=== PATIENT | female | born 1975 | race Caucasian/White ===

== ENCOUNTER 2016-10-25 04:12 | Emergency (ER) | payer OTHER ==
[2016-10-25 04:20] VITALS: BP 129/68; BMI 19.3
[2016-10-25] MEDS ORDERED: AMOXIL CAP 500 MG PO ONE ×2 (04:54→05:07)
[2016-10-25] MEDS ORDERED: TORADOL 60 MG VIAL IM ONE (04:54)
--- NOTE | 2016-10-25 04:55 | DR.GENAD ---
HPI - PCP Primary Care Physician: DORY - HPI Comment HPI Comment: SYMTOMS WORSE TODAY. - Complaint/Symptoms Chief Complaint Doctors Comments: PAIN RT EAR, HEADACHE, COUGH, COLD CONGESTION WITH FEVER AND BODYACHES TIMES ONE DAY. Chief Complaint:: RT EAR PAIN HEADACHE AND BODY ACHES - Nurses notes reviewed Nurses Notes Review: Yes - Source History Provided: Patient - Mode of Arrival Mode of Arrival: Ambulatory - Timing Onset of Chief Complaint: 10/24/16 Came on: Suddenly - Duration Duration: Constant Duration: Days - Severity Severity: Moderate PMH - PMH Past Medical History: No Past Surgical History: Yes Surgical History: - Family History History of Family Medical Conditions: No - Social History Type of Tobacco Use: Cigarettes Does any household member use tobacco: No Alcohol Use: None Do you use any recreational Drugs:: No Lives With: Family Lives Where: Home - infectious screening In the last 2 months have you had wt loss of >10#?: NO Have you had fever, night sweats or hemotysis?: No Have you traveled outside the country in the last 6 months?: No Isolation: Standard ROS - Review of Systems Constitutional: No Symptoms Reported Eyes: No Symptoms Reported. negative: Eye Pain, Discharge ENTM: Ear Pain, Nose Discharge, Nose Congestion, Throat Pain Respiratoy: Productive Cough. negative: Short of Breath, Wheezing, Hemoptysis Cardiovascular: Chest Pain Gastrointestinal/Abdominal: Nausea. negative: Abdominal Pain, Constipation, Diarrhea, Vomiting Genitourinary: No Symptoms Reported Neurological: Headache, Weakness, Dizziness Musculoskeletal: Joint Pain, Muscle Pain Integumentary: No Symptoms Reported Hematologic/Lymphatic: No Symptoms Reported Endocrine: No Symptoms Reported All Other Systems: Reviewed and Negative PE - Vital Signs Vitals: Temperature 98.7 F Pulse Rate 91 Respiratory Rate 18 Blood Pressure 129/68 O2 Sat by Pulse Oximetry 98 - General Limitations: No Limitations General Appearance: Alert - Head Head Exam: Normal Inspection - Eyes Eye exam: Normal Appearance - ENT ENT Exam: Normal External Ear Exam External Ear Exam: Normal External Inspection TM/Canal Exam: Bilateral Bulging Nose Exam: Normal Nose Exam Mouth Exam: Normal Inspection Throat Exam: Tonsillar Erythema. negative: Tonsillomegaly, Tonsillar Exudate - Neck Neck Exam: Trachea Midline. negative: Tenderness, Meningismus, Lymphadenopathy - Chest Chest Inspection: Symmetric Chest Wall Rise - Respiratory Respiratory Exam: Normal Lung Sounds Bilat Respiratory Exam: Bilateral Clear to Auscultation - Cardiovascular Cardiovascular Exam: Regular Rate, Normal Rhythm, Normal Heart Sounds - Abdominal Exam Abdominal Exam: Normal Bowel Sounds, Soft. negative: Tenderness - Extremities Extremities Exam: Normal Inspection - Back Back Exam: Normal Inspection - Neurologic Neurological Exam: Alert, Oriented X3, CN II-XII Intact - Psychiatric Psychiatric Exam: Anxious - Skin Skin Exam: Erythema MDM - Differential Diagnosis Differential Diagnosis: ACUTE SINUSITIS, ACUTR BRONCHITIS, URI, PNEUMONIA Course - Treatment Treatment: SEE ORDERS. IM MED FOR PAIN AND PO ANTIBIOTIC IN ED. - Reevaluation 1st: Improved (PAIN IMPROVING.) - Education/Counseling Education/Counseling: Patient, Education Educated On: Diagnosis, Needs for Follow Up - Diagnosis Discharge Problem: Acute sinusitis Qualifiers: Sinusitis location: unspecified location Recurrence: not specified as recurrent Qualified Code(s): J01.90 - Acute sinusitis, unspecified Acute bronchitis Qualifiers: Bronchitis organism: other organism Qualified Code(s): J20.8 - Acute bronchitis due to other specified organisms - Discharge Plan Condition: Stable Prescriptions: Amoxicillin [Amoxil 875 mg] 875 mg PO BID #20 tab Ibuprofen [MOTRIN TAB 600 MG *] 600 mg PO TID PRN #20 tab PRN Reason: Pain/Inflammation Promethazine W/Codeine [PHENERGAN W/CODEINE 6.25mg/10mg (5mL) *] 5 ml PO Q6H PRN #120 ml PRN Reason: Cough - Follow ups/Referrals Follow ups/Referrals: NFD,None [Primary Care Provider] - 2 days LEONOR GUTIERREZ [STAFF PHYSICIAN] - 2 days - Instructions Instructions: Sinus Headache, [id number], Sinusitis, Adult, Acute Bronchitis , [id number]
[2016-10-25] MEDS ORDERED: TORADOL 60 MG VIAL ONE (05:07)
== END 2016-10-25 06:03 | disposition home or self-care (01) ==
LOC: ER 04:20
DX: J01.80 Other acute sinusitis (principal); J20.8 Acute bronchitis due to other specified organisms
CPT/HCPCS: 87502; 87503; 96372; 99282; J1885

== ENCOUNTER 2016-11-02 08:03 | Emergency (ER) | payer OTHER ==
[2016-11-02 08:14] VITALS: BP 130/84; BMI 19.3
[2016-11-02] MEDS ORDERED: ZOFRAN TAB 4 MG PO ONE (09:05)
[2016-11-02] MEDS ORDERED: ZOFRAN TAB 4 MG ONE (09:09)
[2016-11-02 09:12] LABS: BASOPHILS % (AUTO) 0.5 % (0.2-1.0); EOSINOPHILS % (AUTO) 0.9 % (0.9-2.9); HEMATOCRIT 42.2 % (36.0-47.0); HEMOGLOBIN 14.4 g/dL (12.0-16.0); LYMPHOCYTES # (AUTO) 1.5 X10^3/uL (1.3-2.9); MEAN CORPUSCULAR HEMOGLOBIN 29.9 pg (27.0-34.0); MEAN CORPUSCULAR HGB CONC 34.2 g/dL (33.0-35.0); MEAN CORPUSCULAR VOLUME 87.2 fL (80.0-100.0); MEAN PLATELET VOLUME 8.5 fL (7.4-11.0); MONOCYTES # (AUTO) 0.4 x10^3/uL (0.3-0.8); MONOCYTES % (AUTO) 7.6 % (0.0-13.0); NEUTROPHILS # (AUTO) 3.1 x10^3/uL (2.2-4.8); PLATELET COUNT 259 X10^3/uL (150.0-450.0); RED BLOOD COUNT 4.84 X10^6/uL (3.5-5.4); RED CELL DISTRIBUTION WIDTH 12.5 % (11.6-16.5); WHITE BLOOD COUNT 5.1 X10^3/uL (3.6-10.0)
[2016-11-02 09:25] LABS: BILIRUBIN,URINE NEGATIVE (NEGATIVE); BLOOD/HEMOGLOBIN,URINE NEGATIVE (NEGATIVE); GLUCOSE, URINE NEGATIVE (NEGATIVE); KETONES,URINE NEGATIVE (NEGATIVE); LEUKOCYTE ESTERASE ,URINE NEGATIVE (NEGATIVE); NITRITES,URINE NEGATIVE (NEGATIVE); PROTEIN,URINE NEGATIVE (NEGATIVE); UROBILINOGEN,URINE NORMAL (NORMAL)
[2016-11-02 09:29] LABS: ALANINE AMINOTRANSFERASE 13 Units/L (12-78); ALBUMIN 3.7 g/dL (3.4-5.0); ALKALINE PHOSPHATASE 65 Units/L (46-116); ASPARTATE AMINO TRANSFERASE 10 Units/L (15-37); BLOOD UREA NITROGEN 5 mg/dL (7-18); CALCIUM 8.7 mg/dL (8.5-10.1); CARBON DIOXIDE 30.1 mmol/L (21-32); CHLORIDE 104 mmol/L (98-107); CREATININE 0.82 mg/dL (0.55-1.02); GLUCOSE 94 mg/dL (65-99); SODIUM 143 mmol/L (136-145); TOTAL PROTEIN 7.3 g/dL (6.4-8.2); eGFR BLACK RACES > 60 (>60); eGFR NON BLACK RACES > 60 (>60)
[2016-11-02 09:46] LABS: SERUM PREGNANCY TEST, QUAL NEGATIVE <10 mIU/mL
[2016-11-02 09:47] LABS: AMORPHOUS SEDIMENT,UR TRACE /HPF (NEGATIVE); APPEARANCE,URINE CLEAR (CLEAR); BACTERIA,URINE TRACE /HPF (NEGATIVE); COLOR,URINE YELLOW (YELLOW); RBC,URINE NONE SEEN /HPF (NEGATIVE); SQUAMOUS EPITHELIAL CELL,UR MANY /HPF (NEGATIVE)
[2016-11-02] MEDS ORDERED: POTASSIUM CHLORIDE LIQ 20 MEQ UDC PO ONE (09:51)
--- NOTE | 2016-11-02 09:52 | DR.GENAD ---
HPI - PCP Primary Care Physician: DORY - HPI Comment HPI Comment: PATIENT SAID SHE HAVE USE HYDROCORDONE ON AND OFF FOR 7 YEARS. BUY MED FROM [facility] STREET. PATIENT IS SIGHTLY NAUSEATED TODAY. DENIES SUICIDAL OR HOMICIDAL IDEATIONS. PATIENT DO NOT WISH TO GO TO AN INPATIENT INSTITUITION CURRENTLY. SHE IS SEEKING HELP TO GET OFF OPOIDS. - Complaint/Symptoms Chief Complaint Doctors Comments: PATIENT IS REQUESTING HELP TO GET OFF FROM ILLICIT USE OF HYDROCORDON. LAST USE MED 2 DAYS AGO. Chief Complaint:: PT STATES " I AM HERE TO GET OFF OF PAIN PILLS I HAVE NOT HAD ANY IN 2 DAYS AND ANY TIME I HAVE TRIED TO DETOX I GET SICK". Self Treatment fo Chief Complaint: PT DENIES .. ANY HX OF MENTAL HEALTH AND SHE STATES SHE IS NOT .. WANTING TO HURT HERSELF OR ANYONE ELSE. - Nurses notes reviewed Nurses Notes Review: Yes - Source History Provided: Patient - Mode of Arrival Mode of Arrival: Ambulatory - Timing Onset of Chief Complaint: 11/02/16 Came on: Gradually - Duration Duration: Intermittent Duration: Weeks (YEARS) - Severity Severity: Moderate PMH - PMH Past Medical History: No Past Surgical History: Yes Surgical History: Past Surgical History Comment: .. - Family History History of Family Medical Conditions: Yes Family Medical History: Diabetes Mellitus, Hypertension - Social History Does patient currently use any type of tobacco product: Yes Have you used tobacco products in the last 12 months: Yes Type of Tobacco Use: Cigarettes How many years tobacco product used: 25 Does any household member use tobacco: No Alcohol Use: None Do you use any recreational Drugs:: No Lives With: Family Lives Where: Home - infectious screening In the last 2 months have you had wt loss of >10#?: NO Have you had fever, night sweats or hemotysis?: No Have you traveled outside the country in the last 6 months?: No Isolation: Standard ROS - Review of Systems Constitutional: No Symptoms Reported Eyes: No Symptoms Reported. negative: Eye Pain, Discharge ENTM: No Symptoms Reported. negative: Ear Pain, Nose Discharge, Nose Congestion , Throat Pain Respiratoy: No Symptoms Reported. negative: Productive Cough, Non-Productive Cough, Short of Breath, Wheezing, Hemoptysis Cardiovascular: No Symptoms Reported Gastrointestinal/Abdominal: No Symptoms Reported, Nausea. negative: Vomiting Genitourinary: No Symptoms Reported. negative: Dysuria, Frequency, Hematuria Neurological: No Symptoms Reported. negative: Headache, Weakness, Dizziness Musculoskeletal: Muscle Pain Integumentary: No Symptoms Reported Hematologic/Lymphatic: No Symptoms Reported Endocrine: No Symptoms Reported Psychiatric: Other (NO HOMIOICIDAL IDEATION.). negative: Hallucinations, Suicidal All Other Systems: Reviewed and Negative PE - Vital Signs Vitals: Temperature 98.1 F Pulse Rate 92 Respiratory Rate 22 Blood Pressure 130/84 O2 Sat by Pulse Oximetry 100 - General Limitations: No Limitations General Appearance: Alert - Head Head Exam: Normal Inspection - Eyes Eye exam: Normal Appearance - ENT ENT Exam: Normal External Ear Exam External Ear Exam: Normal External Inspection TM/Canal Exam: Bilateral Normal Nose Exam: Normal Nose Exam Mouth Exam: Normal Inspection Throat Exam: Normal Inspection - Neck Neck Exam: Trachea Midline - Chest Chest Inspection: Symmetric Chest Wall Rise - Respiratory Respiratory Exam: Normal Lung Sounds Bilat Respiratory Exam: Bilateral Clear to Auscultation - Cardiovascular Cardiovascular Exam: Regular Rate, Normal Rhythm, Normal Heart Sounds - Abdominal Exam Abdominal Exam: Normal Bowel Sounds, Soft. negative: Tenderness - Extremities Extremities Exam: Normal Inspection - Back Back Exam: Normal Inspection - Neurologic Neurological Exam: Alert, Oriented X3, CN II-XII Intact, Normal Gait, Reflexes Normal. negative: Motor Sensory Deficit - Psychiatric Psychiatric Exam: Anxious - Skin Skin Exam: Normal Color MDM - Differential Diagnosis Differential Diagnosis: SUBSTANCE USE DISORDER, DETOX REQUEST/FOR OUT PATIENT. Course - Treatment Treatment: SEE ORDERS. PATIENT DO NOT WISH INPATIENT CARE CURRENTLY. OUT PATIENT APPOITMENT WITH [facility]. - Education/Counseling Education/Counseling: Patient, Education Educated On: Treatment, Diagnosis, Needs for Follow Up ROR - Labs Reviewed Laboratory Results Reviewed?: Yes Result Diagrams: 11/02/16 09:00 11/02/16 09:00 Laboratory: WBC 5.1 X10^3/uL (3.6-10.0) 11/02/16 09:00 RBC 4.84 X10^6/uL (3.5-5.4) 11/02/16 09:00 Hgb 14.4 g/dL (12.0-16.0) 11/02/16 09:00 Hct 42.2 % (36.0-47.0) 11/02/16 09:00 MCV 87.2 fL (80.0-100.0) 11/02/16 09:00 MCH 29.9 pg (27.0-34.0) 11/02/16 09:00 MCHC 34.2 g/dL (33.0-35.0) 11/02/16 09:00 RDW 12.5 % (11.6-16.5) 11/02/16 09:00 Plt Count 259 X10^3/uL (150.0-450.0) 11/02/16 09:00 MPV 8.5 fL (7.4-11.0) 11/02/16 09:00 Neut % 61.0 % (42.0-75.0) 11/02/16 09:00 Lymph % 30.0 % (21.0-51.0) 11/02/16 09:00 Burke % 7.6 % (0.0-13.0) 11/02/16 09:00 Eos % 0.9 % (0.9-2.9) 11/02/16 09:00 Baso % 0.5 % (0.2-1.0) 11/02/16 09:00 Neut # 3.1 x10^3/uL (2.2-4.8) 11/02/16 09:00 Lymph # 1.5 X10^3/uL (1.3-2.9) 11/02/16 09:00 Burke # 0.4 x10^3/uL (0.3-0.8) 11/02/16 09:00 Eos # 0.0 x10^3/uL (0.0-0.2) 11/02/16 09:00 Baso # 0.0 X10^3/uL (0.0-0.1) 11/02/16 09:00 Absolute Nucleated RBC 0.0 /100WBC 11/02/16 09:00 Sodium 143 mmol/L (136-145) 11/02/16 09:00 Corrected Sodium TNP 11/02/16 09:00 Potassium 3.1 mmol/L (3.5-5.1) L 11/02/16 09:00 Chloride 104 mmol/L (98-107) 11/02/16 09:00 Carbon Dioxide 30.1 mmol/L (21-32) 11/02/16 09:00 BUN 5 mg/dL (7-18) L 11/02/16 09:00 Creatinine 0.82 mg/dL (0.55-1.02) 11/02/16 09:00 Est GFR (MDRD) Af Amer > 60 (>60) 11/02/16 09:00 Est GFR (MDRD) Non-Af > 60 (>60) 11/02/16 09:00 Glucose 94 mg/dL (65-99) 11/02/16 09:00 Calcium 8.7 mg/dL (8.5-10.1) 11/02/16 09:00 Corrected Calcium TNP 11/02/16 09:00 Total Bilirubin 0.30 mg/dL (0.2-1.0) 11/02/16 09:00 AST 10 Units/L (15-37) L 11/02/16 09:00 ALT 13 Units/L (12-78) 11/02/16 09:00 Alkaline Phosphatase 65 Units/L (46-116) 11/02/16 09:00 Total Protein 7.3 g/dL (6.4-8.2) 11/02/16 09:00 Albumin 3.7 g/dL (3.4-5.0) 11/02/16 09:00 Globulin 3.6 g/dL (2.5-4.5) 11/02/16 09:00 Albumin/Globulin Ratio 1.0 Ratio (1.1-2.1) L 11/02/16 09:00 HCG, Qual Negative <10 mIU/mL 11/02/16 09:00 Specimen Type Clean catch urine 11/02/16 08:46 Urine Color Yellow (YELLOW) 11/02/16 08:46 Urine Appearance Clear (CLEAR) 11/02/16 08:46 Urine pH 7.0 (5.0 - 8.0) 11/02/16 08:46 Ur Specific [place] 1.005 (1.000-1.030) 11/02/16 08:46 Urine Protein Negative (NEGATIVE) 11/02/16 08:46 Urine Glucose (UA) Negative (NEGATIVE) 11/02/16 08:46 Urine Ketones Negative (NEGATIVE) 11/02/16 08:46 Urine Occult Blood Negative (NEGATIVE) 11/02/16 08:46 Urine Nitrite Negative (NEGATIVE) 11/02/16 08:46 Urine Bilirubin Negative (NEGATIVE) 11/02/16 08:46 Urine Urobilinogen Normal (NORMAL) 11/02/16 08:46 Ur Leukocyte Esterase Negative (NEGATIVE) 11/02/16 08:46 Urine RBC None seen /HPF (NEGATIVE) 11/02/16 08:46 Urine WBC 0-1 /HPF (NEGATIVE) 11/02/16 08:46 Ur Squamous Epith Cells Many /HPF (NEGATIVE) 11/02/16 08:46 Amorphous Sediment Trace /HPF (NEGATIVE) 11/02/16 08:46 Urine Bacteria Trace /HPF (NEGATIVE) 11/02/16 08:46 Ur Culture Indicated? No/not indicated 11/02/16 08:46 Salicylates 5.0 mg/dL (2.8-20) 11/02/16 09:00 Urine Opiates Screen Negative (NEG=<300) 11/02/16 08:46 Urine Methadone Screen Negative (NEG=<300) 11/02/16 08:46 Acetaminophen 0.0 ug/mL (10-30) L 11/02/16 09:00 Ur Barbiturates Screen Negative (NEG=<200) 11/02/16 08:46 Ur Phencyclidine Scrn Negative (NEG=<25) 11/02/16 08:46 Ur Amphetamines Screen Negative (NEG=<1000) 11/02/16 08:46 U Benzodiazepines Scrn Negative (NEG=<200) 11/02/16 08:46 Urine Cocaine Screen Negative (NEG=<300) 11/02/16 08:46 U Marijuana (THC) Screen Positive (NEG=<50) A 11/02/16 08:46 Ethyl Alcohol mg/dL < 3 mg/dL (0-19.9) 11/02/16 09:00 - EKG Rhythm: NSR (EKG NOTED.) - Diagnosis Discharge Problem: Substance abuse, Nausea, Hypokalemia - Discharge Plan Disposition: 01 HOME, SELF-CARE Condition: Stable Prescriptions: Ondansetron HCl [Zofran Tab 4 mg] 4 mg PO Q8H PRN #12 tab PRN Reason: Nausea/Vomiting - Follow ups/Referrals Follow ups/Referrals: NFD,None [Primary Care Provider] - 3 days - Instructions Instructions: Substance Abuse Testing, Substance Use Disorder Additional Instructions: RETURN TO ED IF WORSE. FOLLOW UP WITH [facility]. PATIENT IS MEDICALLY CLEAR.
[2016-11-02 09:57] LABS: BLOOD ALCOHOL < 3 mg/dL (0-19.9)
[2016-11-02] MEDS ORDERED: MICRO K EXTEN CAP 10 MEQ PO SCH (11:00)
== END 2016-11-02 11:18 | disposition home or self-care (01) ==
LOC: ER 08:23
DX: F19.10 Other psychoactive substance abuse, uncomplicated (principal); R11.0 Nausea; E87.6 Hypokalemia
CPT/HCPCS: 36415; 80053; 80307; 80320; 81001; 84703; 85025; 93005; 93010; 99283; 99285; S0181; G0434; G6038; G6039; G6040